=== PATIENT | female | born 1980 | race Caucasian/White ===

== ENCOUNTER 2017-01-31 17:59 | Emergency (ER) | payer OTHER ==
[2017-01-31 18:36] LABS: BASOPHILS 0 %; EOSINOPHILS 3.7 %; EOSINOPHILS ABSOLUTE 0.24 10/3/uL (0.0-0.53); ER CBC TAT 0 Hrs 11 Mins; HEMATOCRIT 38.2 % (36.0-48.0); HEMOGLOBIN 12.9 g/dL (12.0-16.0); IMMATURE GRANULOCYTES 0.2 %; IMMATURE GRANULOCYTES ABSOLUTE 0.01 10/3/uL (0.0-0.11); LYMPHOCYTES 24.5 %; LYMPHOCYTES ABSOLUTE 1.59 10/3/uL (0.67-4.30); MANUAL DIFF NO %; MEAN CORPUS HGB CONC 33.8 g/dL (32.0-36.0); MEAN CORPUSCULAR HEMOGLOB 30.2 pg (26.0-34.0); MEAN CORPUSCULAR VOLUME 89.5 fL (80-100); MEAN PLATELET VOLUME 9.3 fL (9.2-13.0); MONOCYTES 2.8 %; MONOCYTES ABSOLUTE 0.18 10/3/uL (0.21-1.20); NEUTROPHILS 68.8 %; NEUTROPHILS ABSOLUTE 4.48 10/3/uL (2.02-8.40); PLATELET COUNT 223 10/3/uL (150-400); RBC DISTRIBUTION WIDTH 12.8 % (12.0-16.0); RED CELL COUNT 4.27 10/6/uL (4.0-5.6); WHITE BLOOD CELLS 6.5 10/3/uL (4.5-10.5)
[2017-01-31 18:42] LABS: INTERNATIONAL NORMAL RATI 1.1 UNITS (-); PARTIAL THROMBO TIME 27.3 SEC (22.5-37.2); PROTIME (NOT ORD) 14.1 SEC (12.0-14.5)
[2017-01-31 18:53] LABS: BUN (BLOOD UREA NITROGEN) 7 MG/DL (6-23); CALCIUM, SERUM 8.8 MG/DL (8.5-10.4); CHEST PAIN PROFILE TAT 0 Hrs 27 Mins; CHLORIDE, SERUM 106 MMOL/L (96-112); CO2 (CARBON DIOXIDE) 29 MMOL/L (24-34); CREATININE 0.84 MG/DL (0.55-1.02); GFR AFRICAN AMERICAN 105 ML/MIN (>=60); GFR NON AFRICAN AMERICAN 91 ML/MIN (>=60); GLUCOSE, SERUM 144 MG/DL (60-99); POTASSIUM, SERUM 3.3 MMOL/L (3.5-5.3); SODIUM, SERUM 143 MMOL/L (135-148); TROPONIN I <0.02 NG/ML (<0.05)
== END 2017-01-31 21:22 | disposition left against medical advice (07) ==
LOC: ER 17:59
PROVIDERS: Emergency Medicine
DX: R07.89 Other chest pain (principal); Z53.21 Procedure and treatment not carried out due to patient leaving prior to being seen by health care provider; R25.2 Cramp and spasm
CPT/HCPCS: 80048; 83735; 84484; 85025; 85610; 85730; 93005